=== PATIENT | female | born 1985 | race Caucasian/White ===

== ENCOUNTER 2016-06-05 21:33 | Emergency (ER) | payer OTHER ==
[2016-06-05 21:58] VITALS: BP 157/101
== END 2016-06-05 23:00 | disposition home or self-care (01) ==
LOC: ED 21:33
DX: J02.9 Acute pharyngitis, unspecified (principal); J06.9 Acute upper respiratory infection, unspecified
CPT/HCPCS: J1885

== ENCOUNTER 2018-09-30 08:50 | Emergency (ER) | payer OTHER ==
[~2018-09-30] VITALS: Ht 165.1 cm; Wt 84.1 kg
[2018-09-30 09:03] VITALS: BP 135/82; Ht 165.1 cm; Wt 84.1 kg
== END 2018-09-30 10:30 | disposition home or self-care (01) ==
LOC: ED 08:50
DX: S93.401A Sprain of unspecified ligament of right ankle, initial encounter (principal); W18.49XA Other slipping, tripping and stumbling without falling, initial encounter; Y93.89 Activity, other specified; Y92.89 Other specified places as the place of occurrence of the external cause; Y99.8 Other external cause status
CPT/HCPCS: Q0092